=== PATIENT | male | born 1945 | race Caucasian/White ===

== ENCOUNTER 2023-07-06 08:34 | Outpatient (CLI) | payer MEDICARE, BC | END 2023-07-06 08:35 | disposition home or self-care (01) | LOC: CSHMRI 08:34 | PROVIDERS: ATTEND Internal Medicine | DX: M54.42 Lumbago with sciatica, left side (principal); M47.816 Spondylosis without myelopathy or radiculopathy, lumbar region | CPT/HCPCS: 72148 ==

== ENCOUNTER 2024-05-24 13:54 | Outpatient (CLI) | payer MEDICARE, BC | END 2024-05-24 13:55 | disposition home or self-care (01) | LOC: CSHRAD 13:54 | PROVIDERS: ATTEND Neurological Surgery | DX: M48.061 Spinal stenosis, lumbar region without neurogenic claudication (principal); M47.816 Spondylosis without myelopathy or radiculopathy, lumbar region; Z98.890 Other specified postprocedural states | CPT/HCPCS: 72100 ==